=== PATIENT | female | born 1945 | race Caucasian/White ===

== ENCOUNTER 2018-05-11 10:35 | Emergency (ER) | payer OTHER ==
[2018-05-11 11:04] VITALS: BP 148/83
--- NOTE | 2018-05-11 13:07 | UC ---
Lower Extremity/Ankle HPI - HPI Summary HPI Summary: 72-year-old female presents with 2 week history of nontraumatic left medial ankle pain. States she has noticed some mild swelling and erythema. Describes pain as a constant ache. Is often worse first thing in the morning and improves throughout the day. She has taken fnyd-auj-zojynft Aleve with some relief the pain. Denies fever, chills, numbness, tingling, calf tenderness or swelling. - History of Current Complaint Chief Complaint: UCLowerExtremity Stated Complaint: L ANKLE COMPLAINT Time Seen by Provider: 05/11/18 12:31 Hx Obtained From: Patient Onset/Duration: Gradual Onset, Lasting Weeks - 2 Severity Currently: Moderate Pain Intensity: 5 Alleviating Factor(s): OTC Meds Able to Bear Weight: Yes - Allergies/Home Medications Allergies/Adverse Reactions: Allergies Allergy/AdvReac Type Severity Reaction Status Date / Time codeine Allergy Nausea And Verified 05/11/18 11:04 Vomiting Home Medications: Home Medications Naproxen Sodium [Aleve] 220 mg PO ONCE PRN 05/11/18 [History Confirmed 05/11/18] PMH/Surg Hx/FS Hx/Imm Hx Previously Healthy: Yes - Denies significant PMH - Surgical History Surgical History: Yes Surgery Procedure, Year, and Place: Hx of left side abd hernia repairx2 with mesh - 2014. left knee replacement 2004. 2001- cyt removed from abd - Family History Family History: NON CONTRIBUTORY - Social History Occupation: Retired Lives: Alone Alcohol Use: None Substance Use Type: None Smoking Status (MU): Never Smoked Tobacco - Immunization History Most Recent Influenza Vaccination: 2013 Most Recent Tetanus Shot: up to date Most Recent Pneumonia Vaccination: never Review of Systems Constitutional: Negative Skin: Other - mild erythema Respiratory: Negative Cardiovascular: Negative Motor: Negative Neurovascular: Negative Musculoskeletal: Other: - See HPI Is Patient Immunocompromised?: No All Other Systems Reviewed And Are Negative: Yes Physical Exam Triage Information Reviewed: Yes Appearance: Well-Appearing, No Pain Distress, Obese Vital Signs: Initial Vital Signs Temp 97.8 F 05/11/18 10:59 Pulse 77 05/11/18 10:59 Resp 18 05/11/18 10:59 BP 148/83 05/11/18 10:59 Pulse Ox 96 05/11/18 10:59 Vital Signs Reviewed: Yes Respiratory: Positive: Respiratory distress Cardiovascular: Positive: Pulses Normal, Brisk Capillary Refill Musculoskeletal: Positive: Strength Intact, ROM Intact, Other: - Mild tenderness , swelling, and erythema of left medial ankle. Able to bear weight. Neurological: Positive: Alert, Other: - Sensation intact distally Skin: Positive: Other - See above. Diagnostics - Radiology No standard instances Radiology Interpretation Completed By: ED Physician - No acute fracture or dislocation, Radiologist - Patient Name: CONOR VILLEGAS Medical Record#: [id number] Ordering Physician: Kody Parker NP Acct.#: [id number] : 1945 Age : 72 Sex: F Location: [facility] Exam Date: 05/11/18 1247 ADM Status: REG ER Order Information: ANKLE LEFT 3+VWS Accession Number: [id number] CPT: 70381 HISTORY: nontraumatic pain and swelling COMPARISONS: None VIEWS: 3 , Frontal, lateral, and oblique views of the left ankle FINDINGS : BONE DENSITY: Normal. BONES: There is no displaced fracture. There are plantar and posterior calcaneal enthesophytes. JOINTS: There is osteoarthritis of the tibiotalar and fibulotalar articulations. ALIGNMENT: There is no dislocation. SOFT TISSUES: Unremarkable. OTHER FINDINGS: None. IMPRESSION: OSTEOARTHRITIS. NO ACUTE OSSEOUS INJURY. IF SYMPTOMS PERSIST, RECOMMEND REPEAT IMAGING. Lower Extremity Course/Dx - Course Course Of Treatment: 72 year old female with 2 week history of nontraumatic left ankle pain. Exam revealed mild left medial ankle tenderness, swelling, and erythema. X-ray shows some osteoarthritis. Will treat with course of prednisone for inflammation secondary to osteoarthritis vs gout. She is to follow up with her PCP in 1 week if symptoms persist. Warning symptoms reviwed with patient. Verbalizes understanding and agrees with POC. - Differential Dx/Diagnosis Differential Diagnosis/HQI/PQRI: Arthritis, Fracture (Closed), Gout, Sprain Provider Diagnoses: Left ankle pain, elevated blood pressure Discharge - Sign-Out/Discharge Documenting (check all that apply): Patient Departure All imaging exams completed and their final reports reviewed: Yes - Discharge Plan Condition: Stable Disposition: HOME Prescriptions: predniSONE TAB* [Deltasone 10 MG TAB*] 30 mg PO DAILY 7 Days #21 tab Patient Education Materials: Arthralgia (ED) Referrals: No Primary Care Phys,NOPCP [Primary Care Provider] - Additional Instructions: The x-ray of your ankle was performed in the clinic today did not show any fracture however there is some arthritis in the ankle joint. Your symptoms are likely from an osteoarthritis however I cannot fully rule out the possibility of gout. We will treat you with a course prednisone to help with the inflammation and pain. You may use ebhi-gng-xeeoerd acetaminophen (Tylenol) according to directions as needed for pain. Your blood pressure was elevated in the clinic today. It is recommended that you follow up with your primary care provider within 4 weeks to have this rechecked. Follow-up with your primary care provider in one week if your symptoms persist. Seek immediate medical attention if you develop fever greater than 100.5, have increased swelling, pain that is not managed with your pain medication, we develop any numbness or tingling in the foot or toes. - Billing Disposition and Condition Condition: STABLE Disposition: Home
== END 2018-05-11 13:25 | disposition home or self-care (01) ==
LOC: UCEAST 10:35
DX: M25.572 Pain in left ankle and joints of left foot (principal); R03.0 Elevated blood-pressure reading, without diagnosis of hypertension; Z88.5 Allergy status to narcotic agent; M19.072 Primary osteoarthritis, left ankle and foot
CPT/HCPCS: 99212; G0463